=== PATIENT | male | born 1990 ===

== ENCOUNTER 2025-01-09 14:42 | Emergency (ER) | payer SELFPAY ==
[2025-01-09 15:05] LABS: APPEARANCE,URINE CLOUDY (CLEAR); GLUCOSE,URINE NEGATIVE (NEGATIVE); OCCULT BLOOD,URINE TRACE-INTACT (NEGATIVE)
[2025-01-09 15:20] LABS: EPITHELIAL CELLS,URINE RARE /HPF (NOT SEEN)
[2025-01-09] MEDS: cefTRIAXone 500 MG, Lidocaine 1% 1 ML IM ONE (15:31)
[2025-01-14 12:46] LABS: C.TRACHOMATIS BY TMA Negative (Negative); M GENITALIUM Negative (Negative); M GENITALIUM SOURCE Urine; N.GONORRHOEAE BY TMA Positive (Negative)
== END 2025-01-09 15:51 | disposition home or self-care (01) ==
LOC: DL.ED 14:42
DX: R36.9 Urethral discharge, unspecified (principal); N39.0 Urinary tract infection, site not specified
CPT/HCPCS: 81001; 87086; 87491; 87563; 87591; 96372; 99283; 99284; A9270; J0696; J2003; Q0144